=== PATIENT | female | born 2005 | race Caucasian/White ===

== ENCOUNTER 2024-01-26 20:33 | Emergency (ER) | payer OTHER, SELFPAY ==
[2024-01-26 20:40] VITALS: BP 151/96
[2024-01-26 21:11] VITALS: BMI 23.2
[2024-01-26 21:33] LABS: % Basophils 0.3 % (0-2); % Eosinophils 0.5 % (0-6); % Immature Granulocytes 0.2 % (0-0.5); % Lymphocytes 9.6 % (20.5-51.1); % Monocytes 10.6 % (1.7-9.3); % Neutrophils 78.8 % (42.2-75.2); Absolute Eosinophils 0.1 10^3/uL (0-0.7); Absolute Monocytes 1.1 10^3/uL (0.1-0.6); Absolute Neutrophils 8.3 10^3/uL (1.4-6.5); Hematocrit 36.8 % (37.0-47.0); Hemoglobin 12.2 g/dL (12.0-16.0); Mean Corp Hgb Conc. 33.2 g/dL (33.0-37.0); Mean Corpuscular Hgb 28.7 pg (27.0-31.0); Mean Corpuscular Volume 86.6 fL (81.0-99.0); Mean Platelet Volume 9.5 fL (7.4-10.4); Nucleated Red Blood Cells % 0 %; Platelet Count 306 10^3/uL (130-400); Red Blood Cell Count 4.25 10^6/uL (4.20-5.40); Red Cell Dist. Width 13.5 % (11.5-14.5); White Blood Cell Count 10.5 10^3/uL (4.8-10.8)
[2024-01-26 21:52] LABS: ALT (SGPT) 15 U/L (0-35); AST (SGOT) 30 U/L (14-36); Albumin 4.6 g/dl (3.5-5.0); Alkaline Phosphatase 88 U/L (38-126); Blood Urea Nitrogen 11 mg/dl (7-17); Calcium 9.7 mg/dl (8.4-10.2); Carbon Dioxide 27 mmol/L (22-30); Chloride 103 mmol/L (98-107); Estimated Creatinine Clearance 109 ml/min; Glucose 103 mg/dl (70-99); Potassium 4.7 mmol/L (3.5-5.1); Sodium 141 mmol/L (135-145); Total Bilirubin 0.3 mg/dl (0.2-1.3); Total Protein 7.8 g/dl (6.3-8.2); eGFR > 60.00
[2024-01-26 22:00] LABS: COVID-19 Antigen Negative (Negative)
[2024-01-26] MEDS: TYLENOL 1000 MG PO (22:28)
[2024-01-26] MEDS: NSS 1000 IV (22:29)
[2024-01-26] MEDS: TORADOL 15 MG IV (22:29)
[2024-01-26] MEDS: DECADRON 10 MG IV (22:29)
[2024-01-26 22:36] VITALS: BP 126/74
[2024-01-26 22:48] LABS: Monotest Negative (Negative)
[2024-01-26 23:00] VITALS: BP 118/68
--- NOTE | 2024-01-26 23:40 | ED.GENMED ---
History of Present Illness
General
Chief Complaint: Throat Problem
Source: patient
Exam Limitations: none
Time Seen by Provider: 01/26/24 21:31
Nursing documentation reviewed up to this point in time: agreed with
Travel History
Have you had any contact with someone who has COVID-19?: No
Do you have any symptoms of coronavirus? Fever > 100 degrees, chills, cough, shortness of breath, sore throat, loss of taste or smell, muscle aches, or headache?: Yes
Symptoms:: fever, sore throat
History of Present Illness
History of Present Illness:
18-year-old female here with worsening sore throat. States she was diagnosed with strep throat on 12/15 and put on an antibiotic twice daily (she is not sure which one but states it was not amoxicillin) she took 2 doses of it and then stopped it due
to it made her sick to her stomach. Her sore throat advance from just being sore to general body aches, headache, chills, nausea and vomiting and on 01/02 she was seen at [facility] emergency room and diagnosed with mono. She states she felt
better for about a week, fever resolved, had more energy.
Four days ago, throat pain got worse, feels like 'shards of glass' w swallowing. Has had diarrhea past 2 days.
Past History
Past History
ED Past Medical History: Other (Had strep throat multiple times)
ED Past Surgical History: Orthopedic
Social History
Tobacco: Non-smoker
Alcohol: Occasional
Personal: Single
Living: with roommate
Employment: Student (Attends [employer])
Review of Systems
Review of Systems
Allergies reviewed?: Yes
All Other Systems: ROS reviewed and negative except as documented in HPI and ROS
Constitutional: Reports fever
EENT: Reports sore throat
Respiratory: Denies trouble breathing
Cardiac: Denies chest pain
ABD/GI: Reports diarrhea; Denies abdominal pain, nausea or vomiting
: Denies dysuria, difficulty voiding or urgency
Musculoskeletal: Reports no symptoms
Skin: Reports no symptoms
Neurological: Reports no symptoms
Phy Exam
Physical Exam
Physical Exam:
GENERAL: No acute distress. A&Ox3.
CONSTITUTIONAL: Temperature 103 for this examiner
EYES: PERRL, conjunctivae normal
Neck: Supple, tender bilateral anterior neck soft tissues, no palpable lymph nodes,speaking and swallowing well.
ENMT: moist mucus membranes, Pharynx mildly erythematous, mildly swollen bilaterally, no palpable abscess, no visible peritonsillar abscess.
RESPIRATORY: Regular respirations, nonlabored, lungs clear.
CARDIOVASCULAR: Regular rate and rhythm, no murmurs, no rubs.
GI: Soft, nontender, normal BS
MUSCULOSKELETAL: Moves with ease. Well perfused.
SKIN: Warm, dry, pink
PSYCH: Normal mood and affect. Well kept, interactive and appropriate
NEUROLOGIC: Awake, alert and oriented. No focal neurological deficits
Course
Orders/Labs/Results
Orders:
Orders
01/26/24 21:27
CMP [Comprehensive Metabolic Panel] Urgent
Complete Blood Count/With Diff Urgent
01/26/24 21:40
COVID-19 Antigen Urgent
Source: Nasal Swab
01/26/24 22:22
Monotest Urgent
Rapid Strep Group A Urgent
RAFAEL Source: Throat/Pharynx
Specimen Description:
Date Specimen was Collected: 01/26/24
Time Specimen was Collected: 22:20
Throat Culture, Comprehensive Urgent
RAFAEL Source: Throat/Pharynx
Specimen Description:
Date Specimen was Collected: 01/26/24
Time Specimen was Collected: 22:20
01/26/24 22:25
0.9% Sodium Chloride 1000 ml [Nss] 1,000 ml IV BOLUS
Acetaminophen [Tylenol] 1,000 mg PO NOW STA
Dexamethasone Sod Phosphate [Decadron] 10 mg IV NOW STA
Ketorolac [Toradol] 15 mg IV NOW STA
Abnormal Lab Results
01/26/24
21:27
Hct 36.8 L %
(37.0-47.0)
Absolute Neuts (auto) 8.3 H 10^3/uL
(1.4-6.5)
Absolute Lymphs (auto) 1.0 L 10^3/uL
(1.2-3.4)
Absolute Monos (auto) 1.1 H 10^3/uL
(0.1-0.6)
Neutrophils % 78.8 H %
(42.2-75.2)
Lymphocytes % 9.6 L %
(20.5-51.1)
Monocytes % 10.6 H %
(1.7-9.3)
Glucose 103 H mg/dl
(70-99)
01/26/24 21:27
01/26/24 21:27
Vital Signs
Initial and Last Documented VS:
Initial Vital Signs
Temp Pulse Resp BP Pulse Ox
100.9 F H 115 20 151/96 100
01/26/24 20:40 01/26/24 20:40 01/26/24 20:40 01/26/24 20:40 01/26/24 20:40
Last Documented Vital Signs
Temp Pulse Resp BP Pulse Ox
103 F H 107 18 118/68 99
01/26/24 22:36 01/26/24 22:36 01/26/24 22:36 01/26/24 23:00 01/26/24 22:36
MDM/Problems Addressed
Differential Diagnosis Includes:
Strep throat, mono, COVID, viral pharyngitis
MDM/Problems Addressed:
18-year-old female here with worsening sore throat. States she was diagnosed with strep throat on 12/15 and put on an antibiotic twice daily (she is not sure which one but states it was not amoxicillin) she took 2 doses of it and then stopped it due
to it made her sick to her stomach. Her sore throat advance from just being sore to general body aches, headache, chills, nausea and vomiting and on 01/02 she was seen at [facility] emergency room and diagnosed with mono. She states she felt
better for about a week, fever resolved, had more energy.
Four days ago, throat pain got worse, feels like 'shards of glass' w swallowing. Has had diarrhea past 2 days.
Temperature 103.0 for this examiner
10:00 PM
CBC noted
CMP normal
Monotest negative
COVID test negative
Rapid strep negative
Throat culture pending
12:30 AM
Patient feeling slightly better after IV fluids, IV Decadron, IV Toradol and p.o. Tylenol.
Temp recheck is 101.3
Rx for prednisone 40 mg daily for 3 days sent to her pharmacy.
She will continue alternating ibuprofen and Tylenol as needed for fever.
This is most likely viral illness, final throat culture pending
*Critical Care Note
Total Time (30-74mins, 75-104mins- exclusive of procedures): Not Applicable
ED Attending Note
-
Portions of this chart may have been created with voice recognition software.� Occasional wrong word or��sound alike� substitutions may have occurred due to the inherent limitations of voice recognition software.
Discharge Plan
Departure
Patient Disposition: Home (Routine Discharge)
Date of Disposition: 01/27/24
Time of Disposition: 00:30
Patient with high blood pressure during this ER visit?: No
Condition: Good
Discharge Problem:
Acute pharyngitis
Instructions: Sore Throat, Adult (DC), Fever, Adult (DC)
Prescriptions:
New
prednisone 20 mg tablet
40 mg PO DAILY Qty: 6 0RF
No Action
Lamictal
50 mg PO DAILY
Referrals:
Isha Ashford, DO [Family Provider] - Follow up in 5-7 days
Activity Restrictions/Additional Instructions:
As we discussed, rest, drink plenty of water/fluids
Alternate Tylenol 1000 mg with ibuprofen 600 mg every 3-4 hours as needed for fever, aches and pains
I sent a prescription to your pharmacy for prednisone 40 mg daily for the next 3 days, this should help with your sore throat.
If your final throat culture comes back positive, we will contact you
See your doctor in 5 to 7 days for recheck if not significantly better by then
Return here immediately for worsening swelling or pain in the throat, difficulty swallowing or speaking, vomiting not related to gagging from coughing or feeling sicker in any way.
Interventions
Interventions:
*Risk Screen - Suicide Last Done: 01/26/24 20:40
*General Assessment Last Done: 01/26/24 20:40
*Neglect/Abuse Screening Last Done: 01/26/24 20:40
ED- Fall Risk Assessment Last Done: 01/26/24 20:40
*ED COVID-19 Vaccine History Last Done: 01/26/24 20:40
*Nursing Disposition Last Done: 01/27/24 00:47
ED-EENT Assessment Last Done: 01/26/24 22:38
ED- Neurological Assessment Last Done: 01/26/24 22:37
ED- Pulmonary Assessment Last Done: 01/26/24 22:37
ED-Skin Assessment Last Done: 01/26/24 22:37
Discharge Date and Time
Discharge Date/Time: 01/27/24 00:47
Print Language: SAO TOMEAN
== END 2024-01-27 00:47 | disposition home or self-care (01) ==
LOC: EMR 20:33
PROVIDERS: Registered Nurse; EMERGENCY PHYSICIAN Emergency Medicine; FAMILY PHYSICIAN Family Medicine
DX: J02.9 Acute pharyngitis, unspecified (principal); R19.7 Diarrhea, unspecified; Z11.52 Encounter for screening for COVID-19; F41.9 Anxiety disorder, unspecified
CPT/HCPCS: 99284; 96374; 96375; 96361; 80053; 85025; 86308; 87070; 87811; 87880

== ENCOUNTER → 2024-10-01 14:54 | Outpatient (REF) | payer OTHER, SELFPAY | LOC: RAD 14:54 | PROVIDERS: ATTENDING PHYSICIAN Internal Medicine Gastroenterology; FAMILY PHYSICIAN Family Medicine | DX: K58.1 Irritable bowel syndrome with constipation (principal) | CPT/HCPCS: 74018 ==